=== PATIENT | female | born 1955 | race Caucasian/White ===

== ENCOUNTER → 2016-10-19 | Outpatient (CLI) | payer BC ==
--- NOTE | 2016-10-19 12:22 | REPMRS ---
Patient History The patient states she had a clinical breast exam in 10/2016. Patient is postmenopausal. No known family history of cancer. Digital Woman Screen Mammo: October 19, 2016 - Exam #: [id number] Bilateral CC and MLO view(s) were taken. Technologist: Skyla Villagran, Technologist Prior study comparison: August 05, 2014, digital woman screen mammo performed at [facility] to [facility]. July 14, 2012, digital woman screen mammo performed at [facility] to [facility]. FINDINGS: There are scattered fibroglandular densities. There has been no change in the appearance of the mammogram from the prior studies. There is a mild amount of residual fibroglandular tissue which is fairly symmetric. There is no interval development of dominant mass, architectural distortion, or clustered microcalcification suggestive of malignancy. ASSESSMENT: BI-RADS/ACR category 1 mammogram. Negative. Recommendation Routine screening mammogram in 1 year (for women over age 40). This mammogram was interpreted with the aid of an FDA-approved computer-aided dectection system. Electronically Signed By: Hernando Mitchell MD 10/19/16 6545
== END ==
LOC: M WHC 09:57
PROVIDERS: ATTEND Nurse Practitioner Family
DX: Z12.31 Encounter for screening mammogram for malignant neoplasm of breast (principal)

== ENCOUNTER → 2016-10-19 | Outpatient (REF) | payer BC | LOC: M SFHCWAGY 10:33 | PROVIDERS: ATTEND Nurse Practitioner Family | DX: Z12.4 Encounter for screening for malignant neoplasm of cervix (principal); Z12.31 Encounter for screening mammogram for malignant neoplasm of breast ==

== ENCOUNTER 2017-04-27 07:46 | Day surgery (SDC) | payer BC ==
--- NOTE | 2017-04-26 15:46 | CR ---
DATE OF CONSULTATION: 04/14/2017 PREOPERATIVE EVALUATION CONSULTATION: Consultation completed on 04/14/2017. CONSULTING PHYSICIAN: Dr. Jose Carlos Gomez SURGEON: Dr. Walters PLANNED PROCEDURE: Cataract extraction. HISTORY OF PRESENT ILLNESS: A very pleasant 62-year-old patient who presents today for preoperative evaluation consultation. She notes in general she is doing quite well. She is walking on a near daily basis. She walks with her . She notes she feels well. She has no significant cardiac history. No history of asthma or respiratory concerns. She has a history of snoring but notes since she recently lost some weight, she does not snore and has never had any apneic episodes. No issues to anesthesia in the past. The patient is taking her medications faithfully. She has had no problems with elevated blood pressure. She does watch her diet regarding cholesterol. She does have some arthritis in her left knee that she is to see orthopedics for and takes her Prilosec every other day with good results. She also takes a vitamin D supplement after having prior diagnosis of deficiency and she looks forward to surgical intervention for better vision. No other new issues or concerns. PAST MEDICAL HISTORY: 1. Hyperlipidemia. 2. Hypertension. 3. Primary osteoarthritis of the left knee. 4. Vitamin D deficiency. 5. Gastroesophageal reflux disease (GERD). 6. Cataracts. PAST SURGICAL HISTORY: 1. Bunionectomy, both feet completed by Dr. Castellano in 2007. 2. Bone spur removed by Dr. Castellano prior. 3. Tonsils and adenoids removed as a child. 4. Spontaneous vaginal delivery times three. ALLERGIES: No known drug allergies. MEDICATIONS: - spironolactone 50 mg by mouth daily - hydrochlorothiazide 25 mg by mouth daily - potassium supplements a 99 mg tablet daily - vitamin D 5000 units daily - omeprazole 20 mg tablet taken every other day - coenzyme Q10 one tablet taken daily - omega-3 fatty acids one tablet daily - Cbbql-Rq-Hvwq two tablets taken daily FAMILY HISTORY: The patient's father at age 65 of a myocardial infarction ([place]). Her mother is still alive. She is 91 years old and takes only a thyroid medication. She has three children who are in their 30s who are healthy. She has one brother with Tali's granuloma and two sisters who are generally healthy. SOCIAL HISTORY: The patient is to her , Juan. They live in [place]. She is retired from the [employer] [place] [employer]. She does regularly exercise and walks almost daily with her . She does exert herself over three minutes without any significant chest pain or shortness of breath. She has never smoked and she rarely takes alcohol. REVIEW OF SYSTEMS: As per the history of present illness (HPI). Otherwise 10-system review is negative. PHYSICAL EXAMINATION: VITAL SIGNS: Blood pressure is 130/72, pulse is 76. Height of 5 feet, 4-1/2 inches. Weight of 177 pounds. She has lost significant weight recently. GENERAL: She appears well in no acute distress, nontoxic, alert and oriented times three. HEENT: Head is atraumatic, normocephalic. Pupils are equal, round, and reactive to light and accommodation. Extraocular motions intact. No lesion of the lid or conjunctivae. Tympanic membranes (TMs) are benign bilaterally. Oral cavity/oropharynx is benign. NECK: Supple. No lymphadenopathy or thyromegaly. HEART: Regular rate and rhythm, S1, S2. No murmurs. LUNGS: Clear to auscultation bilaterally. No wheezes, rales, or rhonchi. ABDOMEN: Soft, nontender, nondistended. No organomegaly. EXTREMITIES: No clubbing, cyanosis, or edema. NEUROLOGIC EXAMINATION: Nonfocal. PREOPERATIVE TESTING: Includes an EKG in our office on 04/14/2017 which shows normal sinus rhythm without significant abnormalities. Most recent laboratories completed 02/28/2017 show a CPA without significant abnormalities. ASSESSMENT AND PLAN: 1. Preoperative evaluation consultation. At this point, the patient appears to be optimized for surgical intervention. She is at relatively low risk for a low-risk procedure. She has no significant cardiac, pulmonary, or anesthesia issues. As per the history of present illness (HPI), if there are any questions or concerns, please call me at [phone]. 2. Cataracts. The patient looks forward to cataract extraction with Dr. Walters as planned. 3. Hypertension. Excellent control on present medications. We will continue. Electrolytes were last checked and were normal. 4. Hyperlipidemia, now diet controlled. We will monitor. 5. Osteoarthritis of the left knee. Will followup with orthopedics. Generally stable. She is able to walk on a regular basis. 6. Vitamin D deficiency. She is doing well on supplement. 7. Gastroesophageal reflux disease (GERD). She is doing well on omeprazole every other day. We will monitor and continue to wean if possible. 8. Ongoing care. I am going to see her again as scheduled. However, she appears to be doing quite well and has made significant positive lifestyle changes, lost weight, and will see me again for followup as scheduled.
[~2017-04-27] VITALS: Ht 166.4 cm; Wt 81.6 kg
[~2017-04-27 07:46] MED LIST: ACETAMINOPHEN 325 MG TAB PO PRN; BSS with VANC/TOB/EPI for EYE CASES IR ONE; CYCLOPENTOLATE 2% OPHTH SOLN 2ML BTL OS ONE; GLUC1CAP10 PO; HEALON DUET (HEALON 10MG/ML 0.55ML & HEALON ENDOCOAT 30MG/ML 0.85ML) As Ordered ONE; HYDR25TAB PO; LIDOCAINE 1% SDV 5 ML VIAL As Ordered ONE; LIDOCAINE 3.5 % 1ML OPHTH TOPICAL GEL OU ONE; MOXIFLOXACIN IN BSS 0.25MG/0.25ML INTRACAMERAL INJ (OR EYE ONLY)(J2280) As Ordered ONE; OFLOXACIN 0.3 % (OCUFLOX) OPTH SOL 5ML OS ONE; OMEP20CA3 PO; PHENYLEPHRINE 2.5% OPHTH SOL 2ML OS ONE; POTA99TA PO; POVIDONE-IODINE 5% OPHTH PREP SOL 30ML As Ordered ONE; PROPARACAINE 0.5% OPHTH SOL 15ML OS PRN; SPIR50TA2 PO; TRIAMCINOLONE PRES FR 40 MG/ML 1ML(TRIESENCE)(OR EYE ONLY)(J3300 PER 1MG) As Ordered ONE; TROPICAMIDE 1% OPHTH SOLN 2ML OS ONE; VITA500046 PO
[2017-04-27] MEDS ORDERED: LR 1,000 ML IV ONE (08:00)
[2017-04-27] MEDS ORDERED: MIDAZOLAM INJ 2 MG/2 ML VIAL (J2250) As Ordered ONE (12:08)
[2017-04-27] MEDS ORDERED: fentaNYL 100 MCG/2 ML INJECTION (J3010) As Ordered ONE (12:08)
[2017-04-27] MEDS ORDERED: ACETYLCHOLINE OPHTH SOLN 1% 2ML (MIOCHOL-E) As Ordered ONE (12:14)
[2017-04-27] MEDS ORDERED: PILOCARPINE 4% OPHTH SOLN 15 ML As Ordered ONE (12:30)
[2017-04-27 12:55] VITALS: BP 129/65
[2017-04-27] MEDS ORDERED: KETOROLAC 0.5% OPHTH SOLN OS ONE (13:00)
[2017-04-27] MEDS ORDERED: AcetaZOLAMIDE 500 MG ER CAP PO ONE (13:00)
[2017-04-27] MEDS ORDERED: TRIMETHOBENZAMIDE 300 MG CAP PO PRN (13:00)
--- NOTE | 2017-05-25 23:14 | RO ---
DATE OF PROCEDURE: 04/27/2017 PREPROCEDURE DIAGNOSIS: Cataract of left eye. POSTPROCEDURE DIAGNOSIS: Cataract of left eye. PROCEDURE: Femtosecond laser and phacoemulsification of the intraocular lens with lens implantation left eye. Intraocular lens power used was [id number], 25.5 diopter. SURGEON: Imtiaz Walters MD SENIOR COMPLIANCE ANALYST: None. ANESTHESIA: Local IV standby. FINDINGS: Cataract of left eye. COMPLICATIONS: None. DESCRIPTION OF PROCEDURE: The patient was brought to the operating room and laid in supine position. A lid speculum was placed, and patient was brought under the femtosecond laser. After the satisfactory placement of the patient interface, primary incision, secondary incision, and arcuate incisions with lens fragmentation was done without any complication per plan. The patients interface was then removed and lid speculum removed. Patient was placed under the microscope. The eye was prepped and draped in a sterile fashion for ophthalmic surgery. Lid speculum was placed. The secondary incision was opened, and EndoCoat was injected into the anterior chamber. The temporal clear corneal incision was then opened and capsulorrhexis removed, followed by hydrodissection. This was followed by phacoemulsification of the lens within the capsular bag. Cortical material was then aspirated, and Healon was injected into the capsular bag. Intraocular lens was then placed. Excess Healon was aspirated. Wound was hydrated. The lid speculum was removed, and patient was returned to the recovery room in stable condition.
== END 2017-04-27 13:30 | disposition home or self-care (01) ==
LOC: M SDC 07:46
PROVIDERS: ATTEND Ophthalmology
DX: H25.9 Unspecified age-related cataract (principal); E78.5 Hyperlipidemia, unspecified; I10 Essential (primary) hypertension; E55.9 Vitamin D deficiency, unspecified; K21.9 Gastro-esophageal reflux disease without esophagitis; Z79.899 Other long term (current) drug therapy
CPT/HCPCS: 66984; J2250; J2280; J3010; J3300

== ENCOUNTER → 2019-02-13 | Outpatient (CLI) | payer MEDICARE ==
[~2019-02-13] MED LIST changes: -ACETAMINOPHEN 325 MG TAB PO PRN; -BSS with VANC/TOB/EPI for EYE CASES IR ONE; -CYCLOPENTOLATE 2% OPHTH SOLN 2ML BTL OS ONE; -HEALON DUET (HEALON 10MG/ML 0.55ML & HEALON ENDOCOAT 30MG/ML 0.85ML) As Ordered ONE; -LIDOCAINE 1% SDV 5 ML VIAL As Ordered ONE; -LIDOCAINE 3.5 % 1ML OPHTH TOPICAL GEL OU ONE; -MOXIFLOXACIN IN BSS 0.25MG/0.25ML INTRACAMERAL INJ (OR EYE ONLY)(J2280) As Ordered ONE; -OFLOXACIN 0.3 % (OCUFLOX) OPTH SOL 5ML OS ONE; -OMEP20CA3 PO; +OMEP20CA4 PO; -PHENYLEPHRINE 2.5% OPHTH SOL 2ML OS ONE; -POVIDONE-IODINE 5% OPHTH PREP SOL 30ML As Ordered ONE; -PROPARACAINE 0.5% OPHTH SOL 15ML OS PRN; -SPIR50TA2 PO; +SPIR50TA4 PO; -TRIAMCINOLONE PRES FR 40 MG/ML 1ML(TRIESENCE)(OR EYE ONLY)(J3300 PER 1MG) As Ordered ONE; -TROPICAMIDE 1% OPHTH SOLN 2ML OS ONE
--- NOTE | 2019-02-13 09:22 | REPMRS ---
Patient History The patient states she has not had a clinical breast exam in over a year. Patient is postmenopausal. No known family history of cancer. 3D TOMOSYNTHESIS WAS PERFORMED. [facility] lifetime risk for breast cancer is 5.1%. Digital Woman Screen Mammo: February 13, 2019 - Exam #: [id number] Bilateral CC and MLO view(s) were taken. Technologist: Lanny Chapa, Technologist Prior study comparison: October 19, 2016, digital woman screen mammo performed at [facility]. August 05, 2014, digital woman screen mammo performed at [facility]. FINDINGS: There are scattered fibroglandular densities. There has been no change in the appearance of the mammogram from the prior studies. There is a mild amount of residual fibroglandular tissue which is fairly symmetric. There is no interval development of dominant mass, architectural distortion, or clustered microcalcification suggestive of malignancy. Assessment: BI-RADS/ACR category 1 mammogram. Negative Mammogram. Recommendation Routine screening mammogram in 1 year (for women over age 40). This mammogram was interpreted with the aid of an FDA-approved computer-aided dectection system. Electronically Signed By: Hernando Mitchell MD 02/13/19 0922
--- NOTE | 2019-02-22 08:56 | DEXA ---
AP SPINE L1 - L4 1.479 2.3 3.9 LT FEMUR TOTAL 1.167 1.3 2.5 LT NECK 0.995 -0.3 1.2 RT FEMUR TOTAL 1.108 0.8 2.0 RT NECK 0.930 -0.8 0.7 TOTAL BODY TOTAL OTHER COMMENTS: Normal bone densitometry of the spine and hips. FOLLOW-UP: Recommendation for the next bone density exam: 5 years. RACHNA
== END ==
LOC: M WHC 06:32
PROVIDERS: ATTEND Family Medicine
DX: Z12.31 Encounter for screening mammogram for malignant neoplasm of breast (principal); Z78.0 Asymptomatic menopausal state; E55.9 Vitamin D deficiency, unspecified

== ENCOUNTER → 2019-04-10 | Outpatient (CLI) | payer MEDICARE ==
[2019-04-10 09:37] LABS: BLOOD UREA NITROGEN 18 MG/DL (7-18); CALCIUM LEVEL 9.1 MG/DL (8.8-10.2); CARBON DIOXIDE LEVEL 26 MEQ/L (21-32); CHLORIDE LEVEL 106 MEQ/L (98-107); CREATININE FOR GFR 0.84 MG/DL (0.55-1.30); GLOMERULAR FILTRATION RATE > 60.0 (>45); GLUCOSE, FASTING 97 MG/DL (70-100); POTASSIUM SERUM 3.9 MEQ/L (3.5-5.1); SODIUM LEVEL 141 MEQ/L (136-145)
--- NOTE | 2019-04-10 10:19 | ECGEPIP ---
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
== END ==
LOC: M LAB 08:27
PROVIDERS: ATTEND Orthopaedic Surgery
DX: Z01.810 Encounter for preprocedural cardiovascular examination (principal); S83.241D Other tear of medial meniscus, current injury, right knee, subsequent encounter; X58.XXXD Exposure to other specified factors, subsequent encounter

== ENCOUNTER → 2020-06-04 | Outpatient (CLI) | payer MEDICARE ==
[~2020-06-04] MED LIST changes: +D31000TA2 PO; +MAGN400C2 PO; +OMEP1CAP73 PO; -OMEP20CA4 PO; +RA T500C2 PO; +SM P99TA PO
[2020-06-04 11:16] LABS: BASO # 0.1 10^3/uL (0.0-0.2); BASO % 0.8 % (0.0-1.0); EOS # 0.1 10^3/uL (0.0-0.5); HEMOGLOBIN 14.7 g/dl (12.0-15.5); LYMPH # 1.8 10^3/uL (1.5-5.0); LYMPH % 23.2 % (24.0-44.0); MEAN CORPUSCULAR HEMOGLOBIN 29.2 pg (27.0-33.0); MEAN CORPUSCULAR HGB CONC 33.4 g/dl (32.0-36.5); MEAN CORPUSCULAR VOLUME 87.3 fl (80.0-96.0); MONO # 0.5 10^3/uL (0.0-0.8); MONO % 7.1 % (0.0-5.0); NEUTROPHILS # 5.2 10^3/uL (1.5-8.5); NEUTROPHILS % 67.6 % (36.0-66.0); PLATELET COUNT, AUTOMATED 237 10^3/uL (150-450); RED BLOOD COUNT 5.04 10^6/uL (4.00-5.40); WHITE BLOOD COUNT 7.6 10^3/uL (4.0-10.0)
[2020-06-04 11:50] LABS: BLOOD UREA NITROGEN 16 MG/DL (7-18); CALCIUM LEVEL 9.7 MG/DL (8.8-10.2); CARBON DIOXIDE LEVEL 25 MEQ/L (21-32); CHLORIDE LEVEL 103 MEQ/L (98-107); CREATININE FOR GFR 0.96 MG/DL (0.55-1.30); GLOMERULAR FILTRATION RATE > 60.0 (>45); GLUCOSE, FASTING 101 MG/DL (70-100); SODIUM LEVEL 136 MEQ/L (136-145)
--- NOTE | 2020-06-06 08:07 | ECGEPIP ---
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
== END ==
LOC: M LAB 09:18
PROVIDERS: ATTEND Podiatrist
DX: M20.22 Hallux rigidus, left foot (principal)

== ENCOUNTER → 2020-06-08 | Outpatient (CLI) | payer MEDICARE | LOC: M LABSMTC 10:02 | PROVIDERS: ATTEND Anesthesiology | DX: Z01.812 Encounter for preprocedural laboratory examination (principal); Z20.828 Contact with and (suspected) exposure to other viral communicable diseases | CPT/HCPCS: C9803; U0003 ==

== ENCOUNTER 2020-06-13 06:57 | Day surgery (SDC) | payer MEDICARE ==
[~2020-06-13] VITALS: Ht 165.1 cm; Wt 91.2 kg
[~2020-06-13 06:57] MED LIST changes: +LIDOCAINE 1% MDV 20ML VIAL SQ PRN
[2020-06-13] MEDS ORDERED: ceFAZolin SOD 2 GM in IV 1 EA IV ONE (07:00)
[2020-06-13] MEDS ORDERED: LR 1,000 ML IV ONE (07:00)
[2020-06-13] MEDS ORDERED: BUPIVACAINE HCL 0.5% 10ML VIAL As Ordered ONE (08:06)
[2020-06-13] MEDS ORDERED: LIDOCAINE 2% MDV 20ML VIAL As Ordered ONE (08:07)
[2020-06-13] MEDS ORDERED: MIDAZOLAM INJ 2MG/2ML VIAL (J2250 PER 1MG) As Ordered ONE (08:07)
[2020-06-13] MEDS ORDERED: NEOSPORIN GU IRRIG 20 ML VIAL As Ordered ONE (08:07)
[2020-06-13] MEDS ORDERED: fentaNYL 100 MCG/2 ML INJECTION (J3010) As Ordered ONE (08:07)
[2020-06-13] MEDS ORDERED: dexameTHASONE 4 MG/ML 1ML VIAL (J1100 PER 1MG) As Ordered ONE (08:07)
[2020-06-13] MEDS ORDERED: LIDOCAINE 2% 100MG/5ML SDV (FOR ANES.) As Ordered ONE (08:07)
[2020-06-13] MEDS ORDERED: BACITRACIN PWD 50,000 UNITS VIAL As Ordered ONE (08:07)
[2020-06-13] MEDS ORDERED: ONDANSETRON 4MG/2ML VIAL As Ordered ONE (08:07)
[2020-06-13] MEDS ORDERED: propofoL 200 MG/20 ML VIAL As Ordered ONE (08:07)
[2020-06-13] MEDS ORDERED: ACETAMINOPHEN 1000MG 100ML IV BTL (OFIRMEV) (J0131 PER 10MG) As Ordered ONE (08:50)
[2020-06-13] MEDS ORDERED: LIDOCAINE 1% SDV 30ML VIAL As Ordered ONE (09:03)
--- NOTE | 2020-06-13 11:03 | REP ---
INDICATION: surgery. COMPARISON: No comparison radiographs.. TECHNIQUE: Four views through overlying postoperative dressing. FINDINGS: Four views of the left foot taken through overlying dressing demonstrate arthrodesis fusion hardware across the 1st MTP joint. There is a metallic pin in the distal 1st metatarsal and a dorsal screw plate fixation device is applied across the joint. Plantar heel spur and midfoot osteoarthritis are incidental findings.. . . IMPRESSION: S/p arthrodesis left 1st MTP joint. Midfoot osteoarthritis and heel spurs. Postoperative imaging.. <Electronically signed by Bryce Aguilar > 06/13/20 1100
[2020-06-13 11:35] VITALS: BP 125/68
--- NOTE | 2020-06-13 13:47 | RO ---
DATE OF OPERATION: 06/13/2020 PREOPERATIVE DIAGNOSIS: Hallux limitus deformity, left foot. POSTOPERATIVE DIAGNOSIS: Hallux limitus deformity, left foot. PROCEDURE: Fusion, 1st metatarsophalangeal joint, left foot, with plate and screw fixation. SURGEON: Dr. Darin Castellano DPM [employer] OFFICER: None. ANESTHESIA: Local monitored anesthesia care (MAC). IRRIGATION: Dilute bacitracin, neomycin, and polymyxin B solution. HEMOSTASIS: Ankle pneumatic tourniquet at 225 mm of mercury for 66 minutes, left ankle. HARDWARE UTILIZED: An Arthrex standard MTP left-sided plate and locking and nonlocking screws, 3.0 x 14, 16, and 20 locking screws and a 3.0 x 18 x 2 compression screw and a 3.0 x 36 mm compression screw. DESCRIPTION OF OPERATION: On 06/13/2020, this 65-year-old female was taken from her hospital room to the operating room and placed on the operating table in the supine position. Following the induction of intravenous (IV) sedation and local and regional anesthesia, the left lower extremity was prepped and draped in the usual aseptic manner. Ankle pneumatic tourniquet was rapidly inflated, sterile draping was completed, and attention was directed to the patient's left foot. There was noted to be a hallux limitus deformity. At this time the following procedure was performed. FUSION, 1ST METATARSOPHALANGEAL JOINT, LEFT FOOT: Attention was directed to the patient's left foot. There was noted to be limited range of motion of the 1st metatarsophalangeal joint. At this time, a 9 cm incision was placed over the 1st metatarsophalangeal joint medial to the extensor tendon. The incision was deepened through subcutaneous tissues, and all coursing venous tributaries were identified, underscored, clamped, cut, ligated, or electrocoagulated as necessary. A linear capsulotomy was performed in the same plane as the original skin incision. The capsular and periosteal structures were then dissected free in one continuous layer dorsally, medially, and laterally, creating a capsuloperiosteal type envelope. There was some joint mice noted on the dorsal aspect of the metatarsophalangeal joint, which were removed, Utilizing a sagittal saw as well as a rongeur, the spurring around the 1st metatarsophalangeal joint was removed. Utilizing cup and cone reamers, the 1st metatarsophalangeal joint was reamed of any additional articular cartilage and was then fenestrated with a 1.6 mm wire to create good bleeding bone for fusion. A stab incision was placed on the medial aspect of the 1st metatarsal, and the hallux was placed in approximately 5 mm of dorsiflexion parallel to the 2nd toe, and a K wire was driven across the proximal phalanx and into the 1st metatarsal. It was measured, and a 3.0 x 36 mm compression screw was selected to compress the osteotomy/fusion site. Plate was then contoured, and the plate was fastened to the 1st metatarsal with locking and locking screws with a 3.0 x 14, 16, and 20 locking screw and a 3.0 x 18 mm times two compression screws. The wound was flushed with copious amounts of dilute bacitracin, neomycin, and polymyxin B solution. Intraoperative C-arm imagery was utilized to visualize the fixation, which seemed to be good. The capsule was coapted and maintained with 2-0 Monocryl in simple interrupted-type fashion. Subcutaneous tissues were coapted and maintained utilizing 4-0 Monocryl in a simple interrupted-type fashion. Skin incision were coapted and maintained utilizing 4-0 Prolene in a simple interrupted fashion. Following the completion of surgical procedure, 4 mg of dexamethasone sodium phosphate was instilled proximal to the surgical site. Attention was directed toward bandaging, where a sterile compressive bandage was applied consisting of Adaptic, 4 x 4's, 4 x 4 splints, Terese, and Kerlix, and a well-molded boot fiberglass cast was applied to the patient's foot with the foot at a right angle to the leg. When the ankle pneumatic tourniquet was released, there was noted to be instantaneous capillary filling time of digits 1-5 of the patient's left foot. The patient, having apparently tolerated the surgical procedure well was taken from the OR to the recovery room for further monitoring by the anesthesia department. Postoperative instructions were given upon discharge. RACHNA
== END 2020-06-13 11:35 | disposition home or self-care (01) ==
LOC: M SDC 06:57
PROVIDERS: ATTEND Podiatrist
DX: M20.22 Hallux rigidus, left foot (principal); I10 Essential (primary) hypertension; K21.9 Gastro-esophageal reflux disease without esophagitis; Z79.899 Other long term (current) drug therapy
CPT/HCPCS: 28750; 73620; 76000; 88300; C1713; J0131; J0690; J1100; J2250; J2405; J3010

== ENCOUNTER → 2021-12-25 | Outpatient (CLI) | payer MEDICARE ==
[~2021-12-25] MED LIST changes: -D31000TA2 PO; +GNP99TAB3 PO; +HYDR-3490 PO; -HYDR25TAB PO; -LIDOCAINE 1% MDV 20ML VIAL SQ PRN; -SM P99TA PO; +VITA100093 PO
== END ==
LOC: M LABSMTC 09:44
PROVIDERS: ATTEND Anesthesiology
DX: Z01.818 Encounter for other preprocedural examination (principal); Z11.52 Encounter for screening for COVID-19

== ENCOUNTER 2021-12-30 10:40 | Day surgery (SDC) | payer MEDICARE ==
[~2021-12-30] VITALS: Ht 165.1 cm; Wt 88.9 kg
[~2021-12-30 10:40] MED LIST changes: +NS 1,000 ML IV ONE
[2021-12-30] MEDS ORDERED: LIDOCAINE 2% 100MG/5ML SDV (FOR ANES.) As Ordered ONE (10:50)
[2021-12-30] MEDS ORDERED: propofoL 200 MG/20 ML VIAL As Ordered ONE (10:50)
[2021-12-30 12:20] VITALS: BP 140/65
== END 2021-12-30 12:29 | disposition home or self-care (01) ==
LOC: M OPP 10:40
PROVIDERS: ATTEND Internal Medicine Gastroenterology
DX: Z12.11 Encounter for screening for malignant neoplasm of colon (principal); K57.30 Diverticulosis of large intestine without perforation or abscess without bleeding; K64.0 First degree hemorrhoids; Z79.899 Other long term (current) drug therapy

== ENCOUNTER 2022-05-18 11:39 | Emergency (ER) | payer MEDICARE ==
[~2022-05-18] VITALS: Ht 167.6 cm; Wt 91.9 kg
[~2022-05-18 11:39] MED LIST changes: -NS 1,000 ML IV ONE
[2022-05-18] MEDS ORDERED: BOOSTRIX/ADACEL VACCINE (DIPHTH/PERTUSS/ACELL/TETANUS) 0.5ML SYR IM ONE (13:55)
[2022-05-18] MEDS ORDERED: ACETAMINOPHEN 325 MG TAB PO ONE (14:35)
[2022-05-18] MEDS ORDERED: DERMABOND TOPICAL SKIN ADHESIVE TOP ONE (15:25)
[2022-05-18 16:01] VITALS: BP 142/79
== END 2022-05-18 16:03 | disposition home or self-care (01) ==
LOC: M ED 11:39
DX: S91.331A Puncture wound without foreign body, right foot, initial encounter (principal); W20.8XXA Other cause of strike by thrown, projected or falling object, initial encounter; I10 Essential (primary) hypertension; Z79.899 Other long term (current) drug therapy; Z79.811 Long term (current) use of aromatase inhibitors; Z23 Encounter for immunization

== ENCOUNTER → 2022-09-08 | Outpatient (CLI) | payer MEDICARE | LOC: M WHC 10:12 | PROVIDERS: ATTEND Family Medicine | DX: Z12.31 Encounter for screening mammogram for malignant neoplasm of breast (principal) ==

== ENCOUNTER → 2022-12-18 | Outpatient (REF) | payer MEDICARE | LOC: M WUC 17:01 | PROVIDERS: ATTEND Student in an Organized Health Care Education/Training Program | DX: R30.0 Dysuria (principal) ==

== ENCOUNTER → 2023-05-30 | Outpatient (REF) | payer MEDICARE | LOC: M LAB REF 12:03 | PROVIDERS: ATTEND Family Medicine | DX: I12.9 Hypertensive chronic kidney disease with stage 1 through stage 4 chronic kidney disease, or unspecified chronic kidney disease (principal); N18.30 Chronic kidney disease, stage 3 unspecified ==

== ENCOUNTER → 2023-09-28 | Outpatient (REF) | payer MEDICARE | LOC: M LAB REF 16:13 | PROVIDERS: ATTEND Nurse Practitioner Family | DX: R30.0 Dysuria (principal) ==

== ENCOUNTER → 2023-10-28 | Outpatient (CLI) | payer MEDICARE | LOC: M WHC 09:16 | PROVIDERS: ATTEND Family Medicine | DX: Z12.31 Encounter for screening mammogram for malignant neoplasm of breast (principal) ==

== ENCOUNTER → 2023-12-09 | Outpatient (REF) | payer MEDICARE | LOC: M LAB REF 18:50 | PROVIDERS: ATTEND Physician Assistant | DX: R30.0 Dysuria (principal) ==

== ENCOUNTER → 2024-01-23 | Outpatient (CLI) | payer MEDICARE | LOC: M WUC 15:03 | PROVIDERS: ATTEND Family Medicine | DX: M16.11 Unilateral primary osteoarthritis, right hip (principal); M25.551 Pain in right hip ==

== ENCOUNTER → 2024-03-01 | Outpatient (CLI) | payer MEDICARE | LOC: M RAD 08:46 | PROVIDERS: ATTEND Family Medicine | DX: I12.9 Hypertensive chronic kidney disease with stage 1 through stage 4 chronic kidney disease, or unspecified chronic kidney disease (principal); N18.9 Chronic kidney disease, unspecified; M54.50 Low back pain, unspecified ==

== ENCOUNTER → 2024-04-04 | Outpatient (CLI) | payer MEDICARE ==
[2024-04-04 10:25] LABS: HEMATOCRIT 39.9 % (36.0-47.0); HEMOGLOBIN 13.5 g/dl (12.0-15.5); MEAN CORPUSCULAR HEMOGLOBIN 30.2 pg (27.0-33.0); MEAN CORPUSCULAR HGB CONC 33.8 g/dl (32.0-36.5); MEAN CORPUSCULAR VOLUME 89.3 fl (80.0-96.0); PLATELET COUNT, AUTOMATED 223 10^3/uL (150-450); RED BLOOD COUNT 4.47 10^6/uL (4.00-5.40); WHITE BLOOD COUNT 7.1 10^3/uL (4.0-10.0)
[2024-04-04 10:32] LABS: ERYTHROCYTE SEDIMENTATION RATE 32 mm/hr (0-30); INR 1.11
[2024-04-04 10:43] LABS: ALBUMIN 3.7 G/DL (3.2-5.2); ALKALINE PHOSPHATASE 71 U/L (46-116); ALT/SGPT 18 U/L (7.0-40); AST/SGOT 15 U/L (<34); BILIRUBIN,TOTAL 0.6 MG/DL (0.3-1.2); BLOOD UREA NITROGEN 17 MG/DL (9-23); CALCIUM LEVEL 9.4 MG/DL (8.3-10.6); CARBON DIOXIDE LEVEL 27 MMOL/L (20-31); CHLORIDE LEVEL 106 MMOL/L (98-107); CREATININE FOR GFR 0.94 MG/DL (0.55-1.30); GLOMERULAR FILTRATION RATE > 60.0 (>39); GLUCOSE, FASTING 101 MG/DL (74-106); POTASSIUM SERUM 4.1 MMOL/L (3.5-5.1); SODIUM LEVEL 140 MMOL/L (136-145); TOTAL PROTEIN 6.9 G/DL (5.7-8.2)
== END ==
LOC: M RAD 08:35
PROVIDERS: ATTEND Orthopaedic Surgery
DX: Z01.818 Encounter for other preprocedural examination (principal); M17.11 Unilateral primary osteoarthritis, right knee

== ENCOUNTER → 2024-06-06 | Outpatient (CLI) | payer MEDICARE | LOC: M WHC 10:13 | PROVIDERS: ATTEND Orthopaedic Surgery | DX: R22.41 Localized swelling, mass and lump, right lower limb (principal) ==

== ENCOUNTER → 2025-02-21 | Outpatient (CLI) | payer MEDICARE | LOC: M WHC 10:03 | PROVIDERS: ATTEND Family Medicine | DX: Z12.31 Encounter for screening mammogram for malignant neoplasm of breast (principal); R92.323 Mammographic fibroglandular density, bilateral breasts ==

== ENCOUNTER → 2025-03-05 | Outpatient (CLI) | payer MEDICARE | LOC: M WHC 08:28 | PROVIDERS: ATTEND Family Medicine | DX: R92.2 Inconclusive mammogram (principal); N60.01 Solitary cyst of right breast | CPT/HCPCS: 76642; 77065; G0279 ==